=== PATIENT | male | born 1990 | race Caucasian/White ===

== ENCOUNTER 2020-02-01 13:19 | Emergency (ER) | payer OTHER, SELFPAY ==
[2020-02-01 13:23] VITALS: BP 135/68; PULSE 69; RESP 16; TEMP 36.7; O2SAT 98
--- NOTE | 2020-02-01 14:40 | ED.GENADULT ---
HPI - General Adult General Chief complaint: Dental/Oral Stated complaint: abscess tooth Time Seen by Provider: 02/01/20 13:51 Source: patient Mode of arrival: ambulatory Limitations: no limitations History of Present Illness HPI narrative: Patient presents with chief complaint of dental pain and swelling to the right upper jaw that has worsened over the past 3 days. Patient denies fever chills, nausea, vomiting, diarrhea. Patient states that he has been taking Tylenol and ibuprofen for pain. Patient states that he has not yet seen a dentist for this episode. Patient states he has diffuse cavities and tooth fractures. Patient states any pa past he was diagnosed with gingivitis. Patient reports allergy to clindamycin but denies allergies to amoxicillin. Related Data Allergies Allergy/AdvReac Type Severity Reaction Status Date / Time clindamycin Allergy Abdominal Verified 02/01/20 13:40 Pain Review of Systems Review of Systems: Narrative: CONSTITUTIONAL: Denies fever, chills, or sweats. EYES: Denies visual changes, redness, or discharge. ENT: Reports dental pain denies rhinorrhea, congestion, sore throat, or otalgia. CARDIOVASCULAR: Denies chest pain, palpitations, or edema. RESPIRATORY: Denies cough or dyspnea. GASTROINTESTINAL: Denies abdominal pain, nausea, vomiting, or diarrhea. GENITOURINARY: Denies dysuria or hematuria. SKIN: Denies rash or itching. MUSCULOSKELETAL: Denies back pain, joint pain, or myalgia. NEUROLOGIC: Denies headache, numbness, dizziness, or weakness. PSYCHIATRIC: Denies anxiety or depression. PMFSH Social History Social History Gender identity (if verbalized by the patient): Male Exam Narrative: Exam Narrative: GENERAL: Well-appearing, well-nourished, and in no acute distress. HEAD: Normocephalic, atraumatic. EYES: PERRLA and EOMI. ENT: Nares clear, no rhinorrhea or epistaxis. Mucous membranes moist. Oropharynx without tonsillar hypertrophy exudate or other lesions. Bilateral TMs pearly interiano nonbulging. Swelling and erythema to gums and right upper mouth. No abscess noted to the gumline. There is diffuse cavities and dental injury. NECK: Supple. No adenopathy or masses. CHEST: No respiratory distress EXTREMITIES: Normal range of motion. SKIN: Warm, dry, no rash. NEURO: No focal deficits. Alert and oriented x3. PSYCH: Normal mood and affect. Course Vital Signs Vital signs: Vital Signs Temperature 98.1 F 02/01/20 13:23 Pulse Rate 69 02/01/20 13:23 Respiratory Rate 16 02/01/20 13:23 Blood Pressure 135/68 02/01/20 13:23 Pulse Oximetry 98 02/01/20 13:23 Temperature 98.1 F 02/01/20 13:23 Pulse Rate 69 02/01/20 13:23 Respiratory Rate 16 02/01/20 13:23 Blood Pressure 135/68 02/01/20 13:23 Pulse Oximetry 98 02/01/20 13:23 Medical Decision Making MDM Narrative Medical decision making narrative: Discussed with patient the importance of following up with dentist for definitive treatment. Vital Signs Vital Signs: Vital Signs Temperature 98.1 F 02/01/20 13:23 Pulse Rate 69 02/01/20 13:23 Respiratory Rate 16 02/01/20 13:23 Blood Pressure 135/68 02/01/20 13:23 Pulse Oximetry 98 02/01/20 13:23 Temperature 98.1 F 02/01/20 13:23 Pulse Rate 69 02/01/20 13:23 Respiratory Rate 16 02/01/20 13:23 Blood Pressure 135/68 02/01/20 13:23 Pulse Oximetry 98 02/01/20 13:23 Discharge Plan Discharge Clinical Impression: Dental abscess Patient Disposition: Home, Self-Care Condition: Improved Instructions: Antibiotic Form, Dental Abscess (ED) Additional Instructions: Take amoxicillin as directed. Take naproxen as directed. Do not take naproxen with any other NSAIDs such as ibuprofen, Aleve, Motrin. You may take Tylenol with this medication if needed. A small amount of lidocaine viscous to a cotton ball and applied to the area of pain. Be careful not to the areas in your mouth as anything it touches it will
[2020-02-01] MEDS: KETOROLAC (*BKC) 60 MG/2 ML VIAL 30 MG IM (14:54)
== END 2020-02-01 14:55 | disposition home or self-care (01) ==
PROVIDERS: Emergency Provider Emergency Medicine
DX: K04.7 Periapical abscess without sinus (principal)
CPT/HCPCS: 96372; 99283; J1885

== ENCOUNTER 2021-07-03 13:44 | Emergency (ER) | payer OTHER, SELFPAY ==
--- NOTE | ~2021-07-03 | XR_ITS ---
EXAMINATION: XR abdomen obstructive series DATE: 07/03/2021 17:24 INDICATION: One year of recently worsening loose stools, abdominal fullness and cramping. TECHNIQUE: Frontal supine and upright views of the abdomen were obtained. COMPARISON: None. FINDINGS: Small amount of gas and small to moderate amount of stool scattered throughout the colon. No dilated gas-filled loops of bowel to suggest obstruction. No pneumatosis or free intraperitoneal gas. Lung ba ses are clear. Heart size within normal limits for AP technique. Multiple phleboliths in the pelvis. Mild thoracolumbar dextroscoliosis. IMPRESSION: 1. Normal bowel gas pattern. No free intraperitoneal gas or dilated gas-filled loops of bowel to sug gest obstruction. Reviewed, dictated and finalized at location A. IMPRESSION: 1. Normal bowel gas pattern. No free intraperitoneal gas or dilated gas-filled loops of bowel to suggest obstruction.
[2021-07-03 14:09] VITALS: BP 137/79; PULSE 74; RESP 16; TEMP 36.9; O2SAT 98
[2021-07-03 16:17] LABS: Basophils Absolute Auto 0.1 K/mm3 (0.0-0.1); Basophils Percent Auto 0.6 % (0.2-1.2); Eosinophils Absolute Auto 0.3 K/mm3 (0-0.3); Eosinophils Percent Auto 3.8 % (0-4.4); Hematocrit 43.3 % (42.0-52.0); Hemoglobin 14.9 g/dL (14.0-18.0); Immature Granulocyte Absolute 0.01 K/mm3 (0.00-0.031); Immature Granulocyte Percent A 0.1 % (0-0.5); Lymphocytes Absolute Auto 3.21 K/mm3 (0.9-3.2); Lymphocytes Percent Auto 40.5 % (18.3-44.2); Mean Corpuscular HGB Conc 34.4 g/dl (32-36); Mean Corpuscular Volume 87.1 fl (80-100); Mean Platelet Volume 9.8 fl (7.4-10.4); Monocytes Absolute Auto 0.6 K/mm3 (0.1-0.6); Monocytes Percent Auto 7.7 % (2.6-8.5); Neutrophils Absolute Auto 3.8 K/mm3 (1.3-6.7); Neutrophils Percent Auto 47.3 % (45.5-73.1); Platelet Count Result 201 k/mm3 (150-375); Red Blood Count 4.97 M/mm3 (4.6-6.20); Red Cell Distribution Width 12.7 % (11.5-14.5); White Blood Count 7.9 K/mm3 (4.5-10.0)
[2021-07-03 16:18] LABS: Add Urine Microscopic? NO; Appearance Urine Clear (Clear); Bilirubin Urine Negative (Negative); Blood Urine Negative (Negative); Color Urine Yellow (Yellow); Glucose Urine UA Negative (Negative); Ketones Urine Negative (Negative); Leukocyte Esterase Ur Negative LEU/UL (Negative); Nitrate Urine Negative (Negative); Protein Urine Negative (Negative); Specific Grav Ur 1.023 (1.001-1.035); Urobilinogen Urine Negative mg/dL (<2.0)
[2021-07-03 16:42] LABS: Alanine Aminotransferase 29 U/L (4-50); Albumin Level 4.4 g/dL (3.5-5.1); Alkaline Phosphatase 92 U/L (38-126); Anion Gap 7 mmol/L (8-16); Aspartate Amino Transferase 30 U/L (17-59); Bilirubin,Total 0.4 mg/dL (0.2-1.3); Blood Urea Nitrogen 17 mg/dL (9-20); Calcium 9.3 mg/dL (8.4-10.2); Carbon Dioxide 27 mmol/L (22-30); Chloride 102 mmol/L (98-107); Estimated CRCL calculation 110 ml/min; Estimated Glomerular Filt Rate > 60; Glucose 92 mg/dL (65-110); Lipase 56 U/L (23-300); Sodium 136 mmol/L (137-145)
--- NOTE | 2021-07-03 17:10 | ED.GENADULT ---
HPI - General Adult General Chief complaint: Abdominal Pain Stated complaint: hernia Time Seen by Provider: 07/03/21 16:06 Source: patient Mode of arrival: ambulatory Limitations: no limitations History of Present Illness HPI narrative: Patient is here for evaluation of what he perceives to be an umbilical hernia, abdominal distention and soft stools. He states that he had some bleeding from his bellybutton several months ago, now there is a growth that he thinks is a hernia. He states that he has been having 1 soft stool a day for several months he is worried about a bowel obstruction. No fever, no bleeding, stools normal color Onset (ago): day(s) Radiation: non-radiation Associated symptoms: denies other symptoms Review of Systems Review of Systems: All systems reviewed & are unremarkable except as noted in HPI and below [facility] Social History Social History (Updated 07/03/21 @ 17:29 by Candy Alejo PA-C) Smoking status: Former smoker Alcohol intake: current Substance use type: marijuana Exam Const: General: no acute distress and alert Nutritional Appearance: obese Orientation/consciousness: patient oriented x3 HENMT: Head: normal to inspection Eyes: Pupils: Equal, round and reactive pupils present Resp: Effort & Inspection: normal respiratory effort Auscultation: clear to auscultation bilaterally Cardio: Rate: regular rate Rhythm: regular rhythm GI: Inspection: other (no hernia noted.) GI Palp: Yes Firmness to palpation present (GI) (full) Auscultation: normal bowel sounds Other: There is a tuft of hair in umbilicus, unable to remove. Skin: General skin exam: normal color Neuro: General: patient oriented x3 and moves all extremities Course Course Emergency Course: X-ray results reviewed with patient. Discussed the plan of improving his diet and perhaps using a fiber supplement. What is in his bellybutton is still unknown but discussed the possibility of a gallery director looking in case it is a mole. We will give him the name of a physician so he can establish primary care. He agrees with the plan. Vital Signs Vital signs: Vital Signs Temperature 36.9 C 07/03/21 14:09 Pulse Rate 74 07/03/21 14:09 Respiratory Rate 16 07/03/21 14:09 Blood Pressure 137/79 07/03/21 14:09 Pulse Oximetry 98 07/03/21 14:09 Temperature 36.9 C 07/03/21 14:09 Pulse Rate 74 07/03/21 14:09 Respiratory Rate 16 07/03/21 14:09 Blood Pressure 137/79 07/03/21 14:09 Pulse Oximetry 98 07/03/21 14:09 Medical Decision Making Vital Signs Vital Signs: Vital Signs Temperature 36.9 C 07/03/21 14:09 Pulse Rate 74 07/03/21 14:09 Respiratory Rate 16 07/03/21 14:09 Blood Pressure 137/79 07/03/21 14:09 Pulse Oximetry 98 07/03/21 14:09 Temperature 36.9 C 07/03/21 14:09 Pulse Rate 74 07/03/21 14:09 Respiratory Rate 16 07/03/21 14:09 Blood Pressure 137/79 07/03/21 14:09 Pulse Oximetry 98 07/03/21 14:09 Lab Data Result diagrams: 07/03/21 16:09 07/03/21 16:09 Labs: Lab Results 07/03/21 07/03/21 07/03/21 Range/Units 16:08 16:09 16:09 WBC 7.9 (4.5-10.0) K/mm3 RBC 4.97 (4.6-6.20) M/mm3 Hgb 14.9 (14.0-18.0) g/dL Hct 43.3 (42.0-52.0) % MCV 87.1 (80-100) fl MCH 30.0 (26-34) pg MCHC 34.4 (32-36) g/dl RDW 12.7 (11.5-14.5) % Plt Count 201 (150-375) k/mm3 MPV 9.8 (7.4-10.4) fl Immature Gran % (Auto) 0.1 (0-0.5) % Neut % (Auto) 47.3 (45.5-73.1) % Lymph % (Auto) 40.5 (18.3-44.2) % Garrard % (Auto) 7.7 (2.6-8.5) % Eos % (Auto) 3.8 (0-4.4) % Baso % (Auto) 0.6 (0.2-1.2) % Lymph # (Auto) 3.21 H (0.9-3.2) K/mm3 Garrard # (Auto) 0.6 (0.1-0.6) K/mm3 Eos # (Auto) 0.3 (0-0.3) K/mm3 Baso # (Auto) 0.1 (0.0-0.1) K/mm3 Abs Immat Gran (auto) 0.01 (0.00-0.031) K/mm3 Absolute Neuts (auto) 3.8 (1.3-6.7) K/mm3 Absolute Nucleated RBC 0.0
[2021-07-03 19:38] VITALS: BP 136/78; PULSE 77; RESP 18; O2SAT 100
== END 2021-07-03 19:41 | disposition home or self-care (01) ==
PROVIDERS: Emergency Medicine; Emergency Provider Emergency Medicine
DX: R14.0 Abdominal distension (gaseous) (principal); Z87.891 Personal history of nicotine dependence
CPT/HCPCS: 36415; 74019; 80053; 81003; 83690; 85025; 99283

== ENCOUNTER 2022-10-02 19:22 | Emergency (ER) | payer OTHER, SELFPAY ==
[2022-10-02] VITALS (7 sets, daily range): BP systolic 135–141; BP diastolic 78–86; PULSE 82; RESP 16; TEMP 37.4; O2SAT 98–99
--- NOTE | 2022-10-02 22:54 | ED.DIZZY ---
HPI - Dizziness General Chief Complaint: Dizziness Stated Complaint: dizzy, worse with lying down Time Seen by Provider: 10/02/22 22:28 History of Present Illness HPI Narrative: 32-year-old male presented the emergency department for evaluation of vertigo. Patient states his symptoms started yesterday when he woke up. Patient denies any recent coughs colds fevers. Patient denies any ear pain or ear pressure. Patient denies any falls or injuries. Patient reports as a child he did have frequent ear infections. Symptoms are worsened when he lays flat. Patient denies any other associated numbness or weakness. Related Data Allergies Allergy/AdvReac Type Severity Reaction Status Date / Time clindamycin Allergy Abdominal Verified 10/02/22 23:15 Pain Review of Systems Review of Systems: CONSTITUTIONAL: Denies fever, chills, or sweats. EYES: Denies visual changes, redness, or discharge. ENT: Denies rhinorrhea, congestion, sore throat, or otalgia. CARDIOVASCULAR: Denies chest pain, palpitations, or edema. RESPIRATORY: Denies cough or dyspnea. GASTROINTESTINAL: Denies abdominal pain, nausea, vomiting, or diarrhea. GENITOURINARY: Denies dysuria or hematuria. SKIN: Denies rash or itching. MUSCULOSKELETAL: Denies back pain, joint pain, or myalgia. NEUROLOGIC: Vertigo PMFSH Social History Social History (System 01/28/22 @ 10:00 by Sharlene Viramontes) Smoking status: Former smoker Alcohol intake: current Substance use type: marijuana Gender identity (if verbalized by the patient): Male Exam Narrative: APPEARANCE: Well appearing, no pain, no distress, well-nourished. HEAD: normocephalic, atraumatic. EYES: PERRLA/EOMI, conjunctivae clear. NOSE: Normal no drainage EARS: Mild fluid behind right TM. Left TM is erythematous and bulging THROAT: Pharynx clear, no exudate. NECK: Supple. No adenopathy, no masses. RESPIRATORY: Airway patent, respirations nonlabored. Clear to auscultation bilaterally, no rales, rhonchi, wheezing. CARDIOVASCULAR: Regular rate and rhythm without murmurs rubs or gallops. ABDOMINAL: Soft, nontender, nondistended, normal bowel sounds MUSCULOSKELETAL: Moves all extremities. Strength/ROM intact, No edema, No calf tenderness. NEURO: Alert. Cranial nerves II through XII intact. Grossly intact. Negative Romberg. Normal strength reflexes. No drift or ataxia SKIN: Warm, dry. Normal Color Course Course Emergency Course: Patient reports his symptoms are controlled when he sits up but are worsened when laying down. Patient does have an otitis media on the left side. Patient was treated with Augmentin for the ear infection. Patient's vertigo symptoms were treated with Valium and meclizine and patient does feel improved. Patient was encouraged of close follow-up with her primary care physician. All question concerns were addressed. Vital Signs Vital signs: Vital Signs Temperature 99.3 F 10/02/22 19:52 Pulse Rate 82 10/02/22 19:52 Respiratory Rate 16 10/02/22 19:52 Blood Pressure 141/78 H 10/02/22 19:52 Pulse Oximetry 98 10/02/22 19:52 Oxygen Delivery Room Air 10/02/22 19:52 Temperature 99.3 F 10/02/22 19:52 Pulse Rate 82 10/02/22 19:52 Respiratory Rate 16 10/02/22 19:52 Blood Pressure 141/78 H 10/02/22 19:52 Pulse Oximetry 98 10/02/22 19:52 Oxygen Delivery Room Air 10/02/22 19:52 Discharge Plan Discharge Clinical Impression: Vertigo Otitis media Qualifiers: Otitis media type: unspecified Laterality: left Qualified Code(s): H66.92 - Otitis media, unspecified, left ear Patient Disposition: Home, Self-Care Condition: Stable Instructions: Antibiotic Form, Benign Paroxysmal Positional Vertigo (ED) Prescriptions: New amoxicillin-pot clavulanate 875-125 mg tablet 1 tablet PO Q12H Qty: 14 0RF meclizine 25 mg tablet 25 mg PO BID PRN (Reason: vertigo) Qty: 14 0RF No Action naproxen 500 mg tablet 500 mg PO BID PRN (Re
[2022-10-02] MEDS: AMOXICILLIN/CLAVULANATE K 875-125 MG TAB 1 TABLET PO (23:14)
[2022-10-02] MEDS: diazePAM (*CRX) 2 MG TABLET PO (23:14)
[2022-10-02] MEDS: MECLIZINE HCL 25 MG TABLET PO (23:14)
--- NOTE | 2022-10-02 23:54 | PC.NURSE ---
Patient states he is feeling better and is ready to go home. ERP notified. Patients SO here to take him home.
== END 2022-10-03 00:03 | disposition home or self-care (01) ==
PROVIDERS: Emergency Provider Emergency Medicine
DX: R42 Dizziness and giddiness (principal); H66.92 Otitis media, unspecified, left ear; Z87.891 Personal history of nicotine dependence
CPT/HCPCS: 99283; A9270

== ENCOUNTER 2023-05-24 12:37 | Emergency (ER) | payer OTHER, SELFPAY ==
[2023-05-24] VITALS (8 sets, daily range): BP systolic 125–150; BP diastolic 73–87; PULSE 55–76; RESP 14–22; TEMP 36.6; O2SAT 93–99
--- NOTE | ~2023-05-24 | XR_ITS ---
EXAMINATION: XR chest 2V DATE: 05/24/2023 13:12 INDICATION: Frontal chest pressure. Shortness of breath. TECHNIQUE: Frontal and lateral views of the chest were obtained. COMPARISON: None. FINDINGS: The chest demonstrates clear lungs without pneumonia, pleural effusion, or pneumothorax. Th e heart size is normal. IMPRESSION: 1. No acute cardiopulmonary disease. Reviewed, dictated and finalized at location A.
--- NOTE | 2023-05-24 12:54 | ECG_ITS ---
Measurements Intervals [place] Rate: 65 P: 37 VA: 156 QRS: 32 QRSD: 111 T: 37 QT: 382 QTc: 398 Interpretive Statements SINUS RHYTHM BORDERLINE R WAVE PROGRESSION, ANTERIOR LEADS MINIMAL Q WAVES- INFERIOR LEADS BASELINE ARTIFACT- I, III, AVL BORDERLINE ECG NO PREVIOUS ECG AVAILABLE FOR COMPARISON Electronically Signed On 05-24-2023 13:58:05 CDT by Rj Gonzalez D.O.
[2023-05-24 13:02] LABS: Basophils Percent Auto 0.5 % (0.2-1.2); Eosinophils Absolute Auto 0.2 K/mm3 (0-0.3); Eosinophils Percent Auto 2.1 % (0-4.4); Hematocrit 46.1 % (42.0-52.0); Hemoglobin 15.8 g/dL (14.0-18.0); Immature Granulocyte Absolute 0.03 K/mm3 (0.00-0.031); Immature Granulocyte Percent A 0.4 % (0-0.5); Lymphocytes Absolute Auto 1.39 K/mm3 (0.9-3.2); Lymphocytes Percent Auto 18.4 % (18.3-44.2); Mean Corpuscular HGB Conc 34.3 g/dl (32-36); Mean Corpuscular Hemoglobin 30.5 pg (26-34); Mean Platelet Volume 9.6 fl (7.4-10.4); Monocytes Absolute Auto 0.5 K/mm3 (0.1-0.6); Monocytes Percent Auto 6.7 % (2.6-8.5); Neutrophils Absolute Auto 5.4 K/mm3 (1.3-6.7); Neutrophils Percent Auto 71.9 % (45.5-73.1); Platelet Count Result 204 k/mm3 (150-375); Red Blood Count 5.18 M/mm3 (4.6-6.20); Red Cell Distribution Width 13.1 % (11.5-14.5); White Blood Count 7.6 K/mm3 (4.5-10.0)
[2023-05-24 13:12] LABS: INR 0.9; Prothrombin Time 12.8 Seconds (11.1-14.7)
[2023-05-24 13:13] LABS: Partial Thromboplastin Time 25.9 SECONDS (22.3-36.8)
[2023-05-24 13:14] LABS: Alanine Aminotransferase 36 U/L (6-50); Albumin Level 4.4 g/dL (3.5-5.1); Alkaline Phosphatase 98 U/L (38-126); Anion Gap 8 mmol/L (8-16); Aspartate Amino Transferase 31 U/L (17-59); Bilirubin,Total 0.6 mg/dL (0.2-1.3); Blood Urea Nitrogen 10 mg/dL (9-20); Carbon Dioxide 28 mmol/L (22-30); Chloride 101 mmol/L (98-107); Estimated CRCL calculation 130 ml/min; Estimated Glomerular Filt Rate > 60; Glucose 98 mg/dL (65-110); Lipase 32 U/L (23-300); Potassium 4.1 mmol/L (3.4-5.0); Sodium 137 mmol/L (137-145)
[2023-05-24 13:26] LABS: Troponin I < 0.012 ng/mL (0.000-0.034)
[2023-05-24] MEDS: ASPIRIN 81 MG CHEWABLE TABLET 324 MG PO (14:39)
--- NOTE | 2023-05-24 15:37 | ED.GENADULT ---
HPI - General Adult General Chief complaint: Chest Pain Stated complaint: chest tightness, palpitations Time Seen by Provider: 05/24/23 14:20 Source: patient Mode of arrival: ambulatory Limitations: no limitations History of Present Illness HPI narrative: This is a 33-year-old male with PMH of bipolar 1 who presents to the ED with chief complaint of chest pain onset yesterday evening. Patient states that has been intermittent in nature. Reports some associated nausea that is resolved. Denies vomiting. It is not associated with exertion. Patient states the pain is a pressure-like sensation in the middle of the chest. Denies any radiation of pain. Reports occasional palpitations. Reports intermittent lightheadedness. Denies LOC. Denies fevers, chills, cough, shortness of breath, abdominal pain, back pain, leg swelling. Related Data Home Medications Medication Instructions Recorded Confirmed No Home Medications 12/31/22 12/31/22 Allergies Allergy/AdvReac Type Severity Reaction Status Date / Time clindamycin Allergy Abdominal Verified 05/24/23 14:26 Pain PMFSH Past Medical History Medical History (Updated 05/24/23 @ 16:03 by Maurilio Garay PA-C) Bipolar 1 disorder Surgical History Surgical History (Updated 12/31/22 @ 14:22 by Thomas Ascencio APRN) History of tonsillectomy and adenoidectomy Family History Family History (Updated 12/31/22 @ 14:24 by Thomas Ascencio APRN) Grandparent Diabetes mellitus Hypertension Heart disease Social History Social History (Updated 12/31/22 @ 14:25 by Thomas Ascencio APRN) Smoking status: Current some day smoker Tobacco type: cigars Alcohol intake: current Alcohol use details: 2 days per week Substance use: current Substance use type: marijuana Living arrangements: with family Occupation/Education: unemployed Gender identity (if verbalized by the patient): Male Exam Narrative: GENERAL: Appears anxious. Otherwise well-appearing. HEAD: Normocephalic, atraumatic. EYES: PERRLA and EOMI. ENT: Nares clear, no rhinorrhea or epistaxis. Mucous membranes moist. Oropharynx without tonsillar hypertrophy exudate or other lesions. NECK: Supple. No adenopathy or masses. CHEST: No respiratory distress. Clear to auscultation. No wheezes rales or rhonchi. HEART: Regular rate and rhythm. No murmur heard. Normal peripheral pulses. ABDOMEN: Soft, nontender, nondistended, normal active bowel sounds. MSK: Normal range of motion. No edema. SKIN: Warm, dry, no rash. NEURO: Alert and oriented x3. No focal deficits. PSYCH: Normal mood and affect. Course Course Emergency Course: Reevaluation 1654: Patient is feeling much better and ready to go home. Vital Signs Vital signs: Vital Signs Temperature 97.9 F 05/24/23 12:52 Pulse Rate 67 05/24/23 12:52 Respiratory Rate 16 05/24/23 12:52 Blood Pressure 130/73 05/24/23 12:52 Pulse Oximetry 99 05/24/23 12:52 Oxygen Delivery Room Air 05/24/23 12:52 Temperature 97.9 F 05/24/23 12:52 Pulse Rate 62 05/24/23 16:32 Respiratory Rate 15 05/24/23 16:32 Blood Pressure 143/87 H 05/24/23 16:32 Pulse Oximetry 95 05/24/23 16:32 Oxygen Delivery Room Air 05/24/23 14:25 Medical Decision Making MDM Narrative Medical decision making narrative: This is a 33-year-old male who presents to the ED with chief complaint of chest pain onset last night. Intermittent in nature and centrally located. Vitals are normal. Lab work grossly unremarkable. Serial troponins are negative. PERC rule negative. Chest x-ray negative. His pain resolved while he was here in the ED. Symptoms consistent with atypical chest pain. He is stable for discharge home at this point. Supportive measures discussed and return precautions were given. He is understanding and agreeable with the plan for discharge and follow-up with his PCP about chest pain. Vital Signs Vital Signs: Vi
[2023-05-24 16:32] LABS: Troponin I < 0.012 ng/mL (0.000-0.034)
== END 2023-05-24 17:03 | disposition home or self-care (01) ==
PROVIDERS: Emergency Medicine; Emergency Provider Physician Assistant; PCP Internal Medicine
DX: R07.89 Other chest pain (principal); F17.290 Nicotine dependence, other tobacco product, uncomplicated; R94.31 Abnormal electrocardiogram [ECG] [EKG]
CPT/HCPCS: 36415; 71046; 80053; 83690; 84484; 85025; 85610; 85730; 93005; 99284; A9270

== ENCOUNTER 2023-05-29 22:08 | Emergency (ER) | payer OTHER, SELFPAY ==
--- NOTE | ~2023-05-29 | CT_ITS ---
EXAMINATION: CTA chest PE abdomen pel DATE: 05/30/2023 01:08 INDICATION: Chest pain. Abdominal pain. TECHNIQUE: Computed tomography angiography (CTA) of the chest was performed with 100 mL Omnipaque-350 intravenous contrast timed to evaluate the pulmonary arteries. Coronal maximum intensity projection 3D-reconstructions were created by the technologist. Computed tomography (CT) of the abdomen and pelv is was performed with intravenous contrast. Automated exposure control and iterative reconstruction t echnique were employed. The dose-length product was 2009.72 mGy-cm. COMPARISON: None. FINDINGS: CTA chest: There is minimal atelectasis bilaterally. No pleural effusion. The heart size is normal. N o pericardial effusion. There is no pulmonary embolus. There is moderate thoracic spondylosis. There is mild chronic anterior wedging of multiple vertebral bodies. CT abdomen and pelvis: There is diffuse hepatic steatosis. There is a 10 mm cyst in the liver. The ga llbladder, spleen, pancreas, adrenal glands, and kidneys are normal. There are no dilated loops of grace wel. The appendix is normal. There are no pathologically enlarged lymph nodes. There is no free intra peritoneal fluid. There is moderate lumbar spondylosis. IMPRESSION: 1. No pulmonary embolus. 2. Diffuse hepatic steatosis. Reviewed, dictated and finalized at location A.
--- NOTE | ~2023-05-29 | XR_ITS ---
EXAMINATION: XR chest 2V DATE: 05/29/2023 22:49 INDICATION: Chest tightness. Shortness of breath. TECHNIQUE: Frontal and lateral views of the chest were obtained. COMPARISON: Chest 2 views 06/20/2023, chest CT 05/30/2023 FINDINGS: The chest demonstrates clear lungs without pneumonia, pleural effusion, or pneumothorax. Th e heart size is normal. IMPRESSION: 1. No acute cardiopulmonary disease. Reviewed, dictated and finalized at location A.
--- NOTE | 2023-05-29 22:10 | ECG_ITS ---
Measurements Intervals [place] Rate: 94 P: 28 TN: 124 QRS: 43 QRSD: 94 T: 45 QT: 341 QTc: 428 Interpretive Statements SINUS RHYTHM BORDERLINE R WAVE PROGRESSION, ANTERIOR LEADS BASELINE WANDER- II, III, AVR, AVL, AVF, V2-V6 BORDERLINE ECG COMPARED TO ECG 05/24/2023 12:50:42 NO SIGNIFICANT CHANGES Electronically Signed On 05-30-2023 7:31:38 CDT by Rj Gonzalez D.O.
[2023-05-29 22:12] VITALS: BP 133/84; PULSE 92; RESP 22; TEMP 36.3; O2SAT 100
[2023-05-29 23:03] LABS: Basophils Absolute Auto 0.1 K/mm3 (0.0-0.1); Basophils Percent Auto 0.6 % (0.2-1.2); Eosinophils Absolute Auto 0.1 K/mm3 (0-0.3); Eosinophils Percent Auto 1.1 % (0-4.4); Hematocrit 47.9 % (42.0-52.0); Hemoglobin 16.8 g/dL (14.0-18.0); Immature Granulocyte Absolute 0.02 K/mm3 (0.00-0.031); Immature Granulocyte Percent A 0.2 % (0-0.5); Lymphocytes Absolute Auto 2.28 K/mm3 (0.9-3.2); Lymphocytes Percent Auto 28.3 % (18.3-44.2); Mean Corpuscular HGB Conc 35.1 g/dl (32-36); Mean Corpuscular Hemoglobin 30.5 pg (26-34); Mean Corpuscular Volume 87.1 fl (80-100); Mean Platelet Volume 10.1 fl (7.4-10.4); Monocytes Absolute Auto 0.6 K/mm3 (0.1-0.6); Monocytes Percent Auto 7.9 % (2.6-8.5); Neutrophils Percent Auto 61.9 % (45.5-73.1); Platelet Count Result 233 k/mm3 (150-375); Red Cell Distribution Width 12.7 % (11.5-14.5); White Blood Count 8.1 K/mm3 (4.5-10.0)
[2023-05-29 23:29] LABS: Alanine Aminotransferase 37 U/L (6-50); Albumin Level 5.1 g/dL (3.5-5.1); Alkaline Phosphatase 101 U/L (38-126); Anion Gap 14 mmol/L (8-16); Aspartate Amino Transferase 32 U/L (17-59); Bilirubin,Total 0.8 mg/dL (0.2-1.3); Blood Urea Nitrogen 12 mg/dL (9-20); Calcium 9.5 mg/dL (8.4-10.2); Carbon Dioxide 24 mmol/L (22-30); Chloride 98 mmol/L (98-107); Estimated CRCL calculation 120 ml/min; Estimated Glomerular Filt Rate > 60; Glucose 103 mg/dL (65-110); Lipase 29 U/L (23-300); Potassium 3.4 mmol/L (3.4-5.0); Sodium 136 mmol/L (137-145)
[2023-05-29 23:36] LABS: Partial Thromboplastin Time 26.7 SECONDS (22.3-36.8)
[2023-05-29 23:41] LABS: Troponin I < 0.012 ng/mL (0.000-0.034)
[2023-05-29 23:55] VITALS: PULSE 85; RESP 15; O2SAT 98
[2023-05-30] VITALS (26 sets, daily range): BP systolic 95–145; BP diastolic 74–100; PULSE 62–102; RESP 14–33; O2SAT 94–100
[2023-05-30] MEDS: BELLADONNA ALK/PHENOB ELIX 10 ML, MAG HYDROX/ALUMINUM HYD/SIMETH 30 ML, LIDOCAINE HCL 2... PO (00:30)
[2023-05-30 02:05] LABS: Troponin I < 0.012 ng/mL (0.000-0.034)
--- NOTE | 2023-05-30 03:06 | ED.GENADULT ---
HPI - General Adult General Chief complaint: Chest Pain Stated complaint: chest tightness Time Seen by Provider: 05/29/23 23:52 History of Present Illness HPI narrative: Patient 33 gentleman presents emergency department chief complaint of chest pain. The patient reports that for the last 6 days he has had discomfort in his chest patient reports that it is a heaviness and tightness reports he feels a little short of breath with this the patient was seen approximately 6 days ago had a negative EKG and negative troponins for 2 episodes but is continued to have constant discomfort. The patient reports he feels as though I he is going to if this continues on patient reports that he has no prior history of cardiac disease Related Data Allergies Allergy/AdvReac Type Severity Reaction Status Date / Time clindamycin Allergy Abdominal Verified 05/24/23 14:26 Pain Review of Systems Review of Systems: A 10 system review of systems was completed on the patient and is negative except for what is stated in the HPI. Nursing and ancillary documentation was reviewed. [facility] Past Medical History Medical History Bipolar 1 disorder Surgical History Surgical History History of tonsillectomy and adenoidectomy Family History Family History Grandparent Diabetes mellitus Hypertension Heart disease Social History Social History Smoking status: Current some day smoker Tobacco type: cigars Alcohol intake: current Alcohol use details: 2 days per week Substance use: current Substance use type: marijuana Living arrangements: with family Occupation/Education: unemployed Gender identity (if verbalized by the patient): Male Exam Narrative: GENERAL: Well-appearing, well-nourished, and in no acute distress. HEAD: Normocephalic, atraumatic. EYES: PERRLA and EOMI. ENT: Nares clear, no rhinorrhea or epistaxis. Mucous membranes moist. NECK: Supple. CHEST: Clear to auscultation. No respiratory distress. HEART: Regular rate and rhythm. No murmur heard. Normal peripheral pulses. ABDOMEN: Soft, nontender, nondistended, normal active bowel sounds. EXTREMITIES: Normal range of motion. No edema. SKIN: Warm, dry, no rash. NEURO: No focal deficits. Alert and oriented x3. PSYCH: Normal mood and affect. Course Vital Signs Vital signs: Vital Signs Temperature 36.3 C L 05/29/23 22:12 Pulse Rate 92 05/29/23 22:12 Respiratory Rate 22 H 05/29/23 22:12 Blood Pressure 133/84 05/29/23 22:12 Pulse Oximetry 100 05/29/23 22:12 Oxygen Delivery Room Air 05/29/23 22:12 Temperature 36.3 C L 05/29/23 22:12 Pulse Rate 79 05/30/23 01:17 Respiratory Rate 16 05/30/23 01:17 Blood Pressure 118/80 05/30/23 01:17 Pulse Oximetry 95 05/30/23 01:17 Oxygen Delivery Room Air 05/30/23 00:27 Medical Decision Making MDM Narrative Medical decision making narrative: Differential diagnosis includes ACS, bowel obstruction, gastroesophageal reflux disease, esophageal spasm take EKG showed no evidence of acute ischemic changes Chest x-ray showed no focal infiltrate Laboratory studies were within normal limits troponin was negative for 2 sets lipase was negative CTA chest showed no evidence of pulmonary embolism CT scan of the abdomen pelvis showed no acute intra-abdominal pathology, Patient received a GI cocktail and essentially resolved his symptoms the patient be discharged home on Protonix and Carafate Vital Signs Vital Signs: Vital Signs Temperature 36.3 C L 05/29/23 22:12 Pulse Rate 92 05/29/23 22:12 Respiratory Rate 22 H 05/29/23 22:12 Blood Pressure 133/84 05/29/23 22:12 Pulse Oximetry 100 05/29/23 22:12 Oxygen [employer]
== END 2023-05-30 03:32 | disposition home or self-care (01) ==
PROVIDERS: Emergency Provider Emergency Medicine; PCP Nurse Practitioner
DX: K29.70 Gastritis, unspecified, without bleeding (principal); R07.9 Chest pain, unspecified; F17.290 Nicotine dependence, other tobacco product, uncomplicated
CPT/HCPCS: 36415; 71046; 71275; 74177; 80053; 83690; 84484; 85025; 85610; 85730; 93005; 99284; A9270; Q9967

== ENCOUNTER 2023-06-15 01:28 | Day surgery (SDC) | payer OTHER, SELFPAY ==
[2023-06-04 14:30] VITALS: BMI 37.3
[2023-06-15 11:20] VITALS: BP 128/73; PULSE 65; RESP 20; O2SAT 99; BMI 37.6
--- NOTE | 2023-06-15 11:26 | WPDHPUPDATE1 ---
History and Physical Update Update Date/Time: 06/15/23 11:26 History and Physical has been reviewed, including an updated exam of the patient. There are NO changes in the patient's condition. Risks, benefits, and alternatives have been discussed and questions answered. Patient agrees to proceed with procedure.
[2023-06-15] MEDS: LACTATED RINGERS 1,000 ML 150 ML IV CONT (11:44)
--- NOTE | 2023-06-15 12:02 | WPDANESEPPF ---
Anes - Initial Pre Proc Eval Procedure: Operation Date: 06/15/23 12:30 Proposed Procedures p Esophagogastroduodenoscopy & Colonoscopy - Gibson Casey MD Date/Time: 06/15/23 12:02 Surgeon: Gibson Casey MD Pre Op Diagnosis: IBS-D,abdom.distension,other chest pain Patient Data Age: 33 Gender: M Height: 1.7 m Weight: 109 kg Last Vital Signs Pulse 65 06/15/23 11:20 Resp 20 06/15/23 11:20 BP 128/73 06/15/23 11:20 Pulse Ox 99 06/15/23 11:20 O2 Del Method Room Air 06/15/23 11:20 Allergies Allergy/AdvReac Type Severity Reaction Status Date / Time clindamycin Allergy Abdominal Verified 06/15/23 11:21 Pain Home Medications Medication Instructions Recorded Confirmed Type sucralfate 1 gram tablet (Carafate) 1 g PO QID 10 days #40 tabs 05/30/23 06/15/23 Rx dicyclomine 20 mg tablet 20 mg PO .every 6 hours PRN 06/01/23 06/15/23 Rx abdominal pain #120 tabs pantoprazole 40 mg tablet,delayed 40 mg PO HS 4 weeks #28 tabs 06/01/23 06/15/23 Rx release (Protonix) rifaximin 550 mg tablet (Xifaxan) 550 mg PO TID 14 days #42 tabs 06/01/23 06/15/23 Rx Patient hx anesthesia problems: none Family hx anesthesia problems: none Results Review: All pre-operative results and documents have been reviewed as part of the pre-operative evaluation. [facility] Past Medical History Medical History (Updated 06/01/23 @ 13:29 by Cheryle Leyva, PIERCE) Bipolar 1 disorder Bloating Bright red blood per rectum Hepatic steatosis Irritable bowel syndrome with diarrhea Obesity Tobacco abuse Surgical History Surgical History History of tonsillectomy and adenoidectomy Family History Family History Grandparent Diabetes mellitus Hypertension Heart disease Social History Social History Years smoked: 20 Smoking status: Former smoker Tobacco type: cigarettes and e-cigarettes/vaping Alcohol intake: current Alcohol use details: Every other day until black out Substance use: current Substance use type: marijuana Living arrangements: with family Occupation/Education: unemployed Gender identity (if verbalized by the patient): Male Spiritual care concerns: No Anes - Eval Final PreProcedure Day of Procedure 06/15/23 12:02 Patient weight: obese Heart: regular rate and rhythm Lungs: clear to auscultation Airway: Mallampati scale class II Neurological: alert and oriented Last oral intake: >/= 8 hours ASA classification: II Emergent: no Anesthetic plan: proceed Results Review: All pre-operative results and documents have been reviewed as part of the pre-operative evaluation. Informed Consent: The patient's anesthetic plan and its attendant risks and benefits were discussed with the patient/family/POA. Questions were solicited and answers provided to the satisfaction of the patient/family/POA.
--- NOTE | 2023-06-15 12:37 | SUR.OPER ---
EGD START: 1225; END: 1230. COLONOSCOPY START: 1238; END: 1244.
[2023-06-15 12:59] VITALS: BP 107/60; PULSE 87; RESP 20; O2SAT 98
[2023-06-15 13:09] VITALS: BP 117/83; PULSE 79; RESP 17; O2SAT 98
[2023-06-15 13:19] VITALS: BP 118/76; PULSE 73; RESP 20; O2SAT 98
== END 2023-06-15 13:35 | disposition home or self-care (01) ==
PROVIDERS: PCP Nurse Practitioner; Visit Provider Internal Medicine Gastroenterology
PROC: 0DJ08ZZ Inspection of Upper Intestinal Tract, Via Natural or Artificial Opening Endoscopic (ICD-10-PCS; CPT 43235; principal; 2023-06-15 12:30)
DX: R19.4 Change in bowel habit (principal); K64.8 Other hemorrhoids; K22.2 Esophageal obstruction; K58.0 Irritable bowel syndrome with diarrhea; K76.0 Fatty (change of) liver, not elsewhere classified; E66.9 Obesity, unspecified; Z68.37 Body mass index [BMI] 37.0-37.9, adult; Z87.891 Personal history of nicotine dependence; F12.90 Cannabis use, unspecified, uncomplicated
CPT/HCPCS: 45378; 43450; 43235; 87081; J2001; J2704; J7120

== ENCOUNTER 2023-07-27 13:55 | Outpatient (CLI) | payer OTHER, SELFPAY ==
[2023-07-27 14:45] LABS: Hematocrit 44.6 % (42.0-52.0); Hemoglobin 15.2 g/dL (14.0-18.0); Mean Corpuscular HGB Conc 34.1 g/dl (32-36); Mean Corpuscular Hemoglobin 30.4 pg (26-34); Mean Corpuscular Volume 89.2 fl (80-100); Mean Platelet Volume 10.3 fl (7.4-10.4); Platelet Count Result 201 k/mm3 (150-375); Red Cell Distribution Width 12.9 % (11.5-14.5); White Blood Count 6.7 K/mm3 (4.5-10.0)
[2023-07-27 15:10] LABS: Alanine Aminotransferase 21 U/L (6-50); Albumin Level 4.3 g/dL (3.5-5.1); Alkaline Phosphatase 84 U/L (38-126); Anion Gap 9 mmol/L (8-16); Aspartate Amino Transferase 23 U/L (17-59); Bilirubin,Total 0.4 mg/dL (0.2-1.3); Blood Urea Nitrogen 12 mg/dL (9-20); CRP 0.8 mg/dL (<1.0); Calcium 8.7 mg/dL (8.4-10.2); Carbon Dioxide 22 mmol/L (22-30); Chloride 107 mmol/L (98-107); Estimated Glomerular Filt Rate > 60; Glucose 94 mg/dL (65-110); Potassium 3.9 mmol/L (3.4-5.0); Sodium 138 mmol/L (137-145)
[2023-07-27 15:37] LABS: Thyroid Stimulating Hormone Reflex 0.551 uIU/mL (0.465-4.68)
[2023-07-30 11:04] LABS: Immunoglobulin A 193 mg/dL (47-310); TTG IGA AB <1.0 U/mL (<15.0)
== END 2023-07-27 13:56 | disposition home or self-care (01) ==
LOC: ANHLAB 13:56
PROVIDERS: PCP Nurse Practitioner; Visit Provider Nurse Practitioner
DX: K21.9 Gastro-esophageal reflux disease without esophagitis (principal); K76.0 Fatty (change of) liver, not elsewhere classified; R14.0 Abdominal distension (gaseous); K58.0 Irritable bowel syndrome with diarrhea
CPT/HCPCS: 36415; 80053; 82784; 84443; 85027; 86003; 86140; 86364

== ENCOUNTER 2024-04-30 21:14 | Emergency (ER) | payer OTHER, SELFPAY ==
[2024-04-30 21:16] VITALS: BP 138/87; PULSE 69; RESP 16; TEMP 36.9; O2SAT 100
[2024-04-30] MEDS: AMOXICILLIN/CLAVULANATE K 875-125 MG TAB 1 TABLET PO (22:31)
[2024-04-30] MEDS: HYDROcodone/acetaminophen (*CRX) 5-325 MG TABLET 1 TAB PO (22:31)
[2024-04-30] MEDS: IBUPROFEN 600 MG TABLET PO (22:32)
--- NOTE | 2024-04-30 22:39 | ED.DENTAL ---
HPI - Dental/Oral General Chief complaint: Dental/Oral Stated complaint: dental infection Time Seen by Provider: 04/30/24 21:34 Source: patient Mode of arrival: ambulatory Limitations: no limitations History of Present Illness HPI Narrative: Patient is a 34 y/o male who presents to the ED with c/o R sided dental pain. Patient reports he broke his right upper canine, tooth #6 a few weeks ago. He has had intermittent pain since then, but complains of more significant pain since this morning. He also reports chronic issues with his right lower molars, tooth 31 and 32. States he has been having pain in this region since this morning as well. Has not taken anything for pain. Denies vomiting, difficulty breathing or swallowing, fevers. Patient does not currently have a dentist. Related Data Allergies Allergy/AdvReac Type Severity Reaction Status Date / Time clindamycin Allergy Abdominal Verified 01/11/24 13:31 Pain Review of Systems Review of Systems: CONSTITUTIONAL: Denies fever, chills, or sweats. ENT: See HPI. RESPIRATORY: Denies dyspnea. GASTROINTESTINAL: Denies abdominal pain, nausea, vomiting. All systems reviewed & are unremarkable except as noted in HPI and below PMFSH Past Medical History Medical History Bipolar 1 disorder Bloating Bright red blood per rectum Gastroesophageal reflux disease Hepatic steatosis Internal hemorrhoid Irritable bowel syndrome with diarrhea NAFLD (nonalcoholic fatty liver disease) Obesity Schatzki's ring Tobacco abuse Surgical History Surgical History History of tonsillectomy and adenoidectomy Family History Family History Grandparent Diabetes mellitus Hypertension Heart disease Social History Social History Years smoked: 20 Smoking status: Former smoker Tobacco type: cigarettes and e-cigarettes/vaping Alcohol intake: current Alcohol use details: Every other day until black out Substance use: current Substance use type: marijuana Living arrangements: with family Occupation/Education: unemployed Gender identity (if verbalized by the patient): Male Spiritual care concerns: No Exam Narrative: GENERAL: Well appearing, obese with BMI of 33.1, non-toxic, in no acute distress. HEAD: Normocephalic, atraumatic. ENT: Diffuse dental decay case. Scattered dental caries. Several teeth eroded down to gumline. Tooth 6 eroded down to gumline. Tenderness along out along gumline. Tenderness to palpation along right lower posterior gumline along the posterior molars. No focal fluctuance or abscess. No drainage. No bleeding. No trismus or stridor. RESPIRATORY: Airway patent, respirations nonlabored. CARDIOVASCULAR: Regular rate and rhythm MUSCULOSKELETAL: Moves all extremities. No gross deformities. SKIN: Warm, dry, normal color. NEURO: A&O X3. Speech clear. PSYCHIATRIC: Appropriate mood and affect. Normal interaction. Course Vital Signs Vital signs: Vital Signs Temperature 98.5 F 04/30/24 21:16 Pulse Rate 69 04/30/24 21:16 Respiratory Rate 16 04/30/24 21:16 Blood Pressure 138/87 04/30/24 21:16 Pulse Oximetry 100 04/30/24 21:16 Oxygen Delivery Room Air 04/30/24 21:16 Temperature 98.5 F 04/30/24 21:16 Pulse Rate 69 04/30/24 21:16 Respiratory Rate 16 04/30/24 21:16 Blood Pressure 138/87 04/30/24 21:16 Pulse Oximetry 100 04/30/24 21:16 Oxygen Delivery Room Air 04/30/24 21:16 MDM - Dental/Oral MDM Narrative Medical decision making narrative: Patient's pain is consistent with dental caries. There are no focal signs of space-occupying abscess. The patient is controlling secretions well without signs of airway compromise. Patient is felt reasonable f
== END 2024-04-30 22:51 | disposition home or self-care (01) ==
PROVIDERS: Emergency Provider Physician Assistant; PCP Nurse Practitioner
DX: K02.9 Dental caries, unspecified (principal); S02.5XXA Fracture of tooth (traumatic), initial encounter for closed fracture; K08.89 Other specified disorders of teeth and supporting structures; F31.9 Bipolar disorder, unspecified; K21.9 Gastro-esophageal reflux disease without esophagitis; X58.XXXA Exposure to other specified factors, initial encounter
CPT/HCPCS: 99283; A9270

== ENCOUNTER 2024-08-07 15:19 | Outpatient (CLI) | payer OTHER, SELFPAY ==
[2024-08-07 15:47] LABS: Hematocrit 43.5 % (42.0-52.0); Hemoglobin 14.7 g/dL (14.0-18.0); Mean Corpuscular HGB Conc 33.8 g/dl (32-36); Mean Corpuscular Hemoglobin 29.5 pg (26-34); Mean Corpuscular Volume 87.3 fl (80-100); Mean Platelet Volume 9.7 fl (7.4-10.4); Platelet Count Result 205 k/mm3 (150-375); Red Blood Count 4.98 M/mm3 (4.6-6.20); White Blood Count 6.9 K/mm3 (4.5-10.0)
[2024-08-07 15:59] LABS: INR 0.9; Prothrombin Time 12.9 Seconds (11.1-14.7)
[2024-08-07 16:01] LABS: Alanine Aminotransferase 15 U/L (6-50); Albumin Level 4.2 g/dL (3.5-5.1); Alkaline Phosphatase 71 U/L (38-126); Anion Gap 5 mmol/L (4-12); Aspartate Amino Transferase 21 U/L (17-59); Bilirubin,Total 0.3 mg/dL (0.2-1.3); Blood Urea Nitrogen 10 mg/dL (9-20); Calcium 9.1 mg/dL (8.4-10.2); Carbon Dioxide 32 mmol/L (22-30); Chloride 102 mmol/L (98-107); Estimated Glomerular Filt Rate > 60; Glucose 105 mg/dL (65-110); Potassium 4.9 mmol/L (3.4-5.0); Sodium 139 mmol/L (137-145)
[2024-08-07 18:06] LABS: Thyroid Stimulating Hormone Reflex 0.249 uIU/mL (0.465-4.68)
[2024-08-07 20:03] LABS: Free T4 Free Thyroxine Reflex 0.76 ng/dL (0.78-2.19)
[2024-08-16 17:04] LABS: ALT 11 U/L (9-46); Alpha-2-Macroglobulin 108 mg/dL (106-279); Apolipoprotein A1 148 mg/dL (94-176); Fibrosis Score 0.02; Fibrosis Stage F0; GGT 14 U/L (3-90); Haptoglobin 148 mg/dL (43-212); Necroinflammat Act Grade A0; Reference ID 5120264; Total Bilirubin 0.3 mg/dL (0.2-1.2)
== END 2024-08-07 15:20 | disposition home or self-care (01) ==
LOC: ANHLAB 15:20
PROVIDERS: PCP Nurse Practitioner; Visit Provider Nurse Practitioner
DX: K76.0 Fatty (change of) liver, not elsewhere classified (principal); K21.9 Gastro-esophageal reflux disease without esophagitis; K22.2 Esophageal obstruction; R14.0 Abdominal distension (gaseous); R63.4 Abnormal weight loss
CPT/HCPCS: 36415; 80053; 81596; 84439; 84443; 85027; 85610

== ENCOUNTER 2024-08-14 07:58 | Outpatient (CLI) | payer OTHER, SELFPAY ==
--- NOTE | ~2024-08-14 | CT_ITS ---
CT of the Abdomen and Pelvis: Indication: Abdominal pain Technique: 2.5 mm axial scans were obtained through the abdomen and pelvis following intravenous adm inistration of 100 cc of Omnipaque 350. Dose reduction technique was used on this scan by utilizing a utomated exposure control and iterative reconstruction technique. The dose-length product (DLP) was 5 99.90 mGy-cm. COMPARISON: 05/30/2023 Findings: Scans through the lung bases are unremarkable. The liver, spleen, pancreas, gallbladder, adrenals and kidneys are within normal limits. No evidence of aortic aneurysm. No lymphadenopathy. No bowel obstruction or bowel wall thickening. There is no evidence to suggest acute appendicitis. Images through the pelvis were performed. Probable diffuse urinary bladder wall thickening. No pelvic mass seen. No ascites. Impression: Probable cystitis. Correlate clinically and with urinalysis. Reviewed, dictated and finalized at [facility]. Impression: Probable cystitis. Correlate clinically and with urinalysis.
== END 2024-08-14 07:59 | disposition home or self-care (01) ==
LOC: ANHIMG 08:00
PROVIDERS: PCP Nurse Practitioner; Visit Provider Nurse Practitioner
DX: R10.32 Left lower quadrant pain (principal); K58.0 Irritable bowel syndrome with diarrhea
CPT/HCPCS: 74177; Q9967

== ENCOUNTER 2024-09-20 11:35 | Outpatient (CLI) | payer OTHER, SELFPAY ==
[2024-09-20 12:11] LABS: Add Urine Microscopic? NO; Appearance Urine Clear (Clear); Bilirubin Urine Negative (Negative); Blood Urine Negative (Negative); Color Urine Yellow (Yellow); Glucose Urine UA Negative (Negative); Ketones Urine 1+ mg/dL (Negative); Leukocyte Esterase Ur Negative LEU/UL (Negative); Nitrate Urine Negative (Negative); Protein Urine Negative (Negative); Urobilinogen Urine 0.2 mg/dL (<2.0)
[2024-09-20 12:51] LABS: Thyroid Stimulating Hormone 0.959 uIU/mL (0.465-4.680)
[2024-09-20 13:33] LABS: Free T4 Free Thyroxine 0.87 ng/mL (0.78-2.19)
== END 2024-09-20 11:36 | disposition home or self-care (01) ==
LOC: ANHLAB 11:36
PROVIDERS: PCP Nurse Practitioner; Visit Provider Nurse Practitioner
DX: R30.0 Dysuria (principal); R94.6 Abnormal results of thyroid function studies
CPT/HCPCS: 36415; 81003; 84439; 84443

== ENCOUNTER 2025-06-19 17:30 | Emergency (ER) | payer OTHER, SELFPAY ==
--- NOTE | ~2025-06-19 | XR_ITS ---
EXAM: XR finger 2nd RT min 2V DATE: 06/19/2025 18:13 HISTORY: proximal finger swelling . COMPARISON: None available. FINDINGS: Normal mineralization. No fracture or dislocation. No lytic or blastic lesion. Joint space s are maintained. No erosion or periosteal change. No radiopaque foreign body. No subcutaneous gas. P roximal soft tissue swelling, with a 1.1 cm rounded opacity along the anterolateral aspect. IMPRESSION: No acute osseous finding in the right second digit. 1.1 cm soft tissue density mass along the anterolateral aspect of the proximal second digit with adjacent soft tissue swelling. May repres ent cyst, abscess, or other soft tissue lesion. Correlate for signs of infection. Reviewed, dictated and finalized at [facility]. IMPRESSION: No acute osseous finding in the right second digit. 1.1 cm soft tis ca density mass along the anterolateral aspect of the proximal second digit wi th adjacent soft tissue swelling. May represent cyst, abscess, or other soft ti ssue lesion. Correlate for signs of infection.
--- OUTSIDE RECORDS SUMMARY | 2025-06-19 17:32 | XMS_ITS | Clinical Summary ---
Author Organization [facility] Address [address] [place] [address] Phone Care Team Providers Care Seamer Name Role Phone Provider, None Primary Care Provider Unavailabl e Allergies No known active allergies Medications LORazepam (ATIVAN) 0.5 MG Tablet Take 1 Tab by mouth every 6 hours as needed for Anxiety. 20 Tab 0 06/29/2016 Active Social History Tobacco Use Types Packs/Day Years Used Date Smoking Tobacco: Every Day Cigarettes Alcohol Use Standard Drinks/Week Comments Yes 0 (1 standard drink = 0.6 oz pur e alcohol) occasionally Sex and Gender Information Value Date Recorded Sex Assigned at Not on file Legal Sex Male 10:28 AM CDT Gender Identity Not on file Sexual Orientation Not on file Last Filed Vital Signs Vital Sign Reading Time Taken Comments Blood Pressure 111/58 06/29/2016 10:45 AM CDT Pulse 111 06/29/2016 10:34 AM CDT Temperature 36.6 C (97.8 F) 06/29/2016 10:34 AM CDT Respiratory Rate 20 06/29/2016 10:34 AM CDT Oxygen Saturation 95% 06/29/2016 10:34 AM CDT Inhaled Oxygen Concentration - - Weight 99.8 kg (220 lb) 06/29/2016 10:34 AM CDT Height 170.2 cm (5' 7) 06/29/2016 10:34 AM CDT Body Mass Index 34.46 06/29/2016 10:34 AM CDT Plan of Treatment Not on file Insurance MEDICAID [facility] PL[facility] Care Teams Seamer Relationship Specialty Start Date End Date Provider, None [place] PCP - General 06/29/16
--- OUTSIDE RECORDS SUMMARY | 2025-06-19 17:32 | XMS_ITS | Clinical Summary ---
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 Gender Identity Not on file Sexual Orientation Not on file Plan of Treatment Health Maintenance Due Date Last Done Comments Annual Physical 1992 Hepatitis C 2007 DTaP, Tdap and Td Vaccines ( 1 - Tdap) 2008 Hepatitis B Vaccines (1 of 3 - 19+ 3-dose series) 2008 HPV Vaccines (1 - 3-dose SCD M series) 2016 COVID-19 Vaccine (2023-2 5 season) 2024 Meningococcal B Vaccine Aged Out No l onger eligible based on patient's age to complete this topic Meningococcal Vaccine Aged Out No manisha moustapha eligible based on patient's age to complete this topic Pneumococcal Vaccine: Pediat rics (0 to 5 Years) and At-Risk Patients (6 to 49 Years) Aged Out No longer eligible b ased on patient's age to complete this topic RSV Immunizations Under 20 Months Aged Out No longer eligible based on patient's age to complete this topic
[2025-06-19 17:40] VITALS: BP 110/71; PULSE 76; RESP 18; TEMP 36.4; O2SAT 99
--- NOTE | 2025-06-19 18:05 | ED.EXTPRO ---
HPI - Extremity Problem General Chief complaint: Extremity Problem,Nontraumatic Stated complaint: finger swelling Time Seen by Provider: 06/19/25 18:48 Focused HPI: 35-year-old male presents emergency department for atraumatic swelling to the right 2nd digit. Patient states about a year and half ago he cut his right 1st digit with a pocket knife in the area that he now is having swelling in the same location. He has not had any issues since until he developed swelling to his right 2nd digit today. He denies recent injury or trauma. States the area is tender and painful. Denies drainage or fevers. States he never had imaging of his finger to evaluate for retained foreign body. GENERAL: Well-appearing, well-nourished, and in no acute distress. HEAD: Normocephalic, atraumatic. CHEST: Clear to auscultation. ?No respiratory distress. EXT: Right second finger with focal area of edema to the palmar aspect of the proximal phaynx. Full ROM. Mild overlying erythema. Cap refill <2. HEART: Regular rate and rhythm.? NEURO: ?Alert and oriented x3. Patient screened in triage and initial orders placed.? ?Additional care and disposition to be based upon?diagnostic testing and treatment. History of Present Illness HPI Narrative: Agree with the above HPI. Related Data Home Medications ?Medication ?Instructions ?Recorded ?Confirmed ?Last Taken ?Type psyllium husk 0.52 gram capsule 0.52 g PO BID 10/05/24 10/05/24 Unknown History (Fiber (psyllium husk)) simethicone 125 mg capsule (Gas-X 125 mg PO DAILY PRN 10/05/24 10/05/24 Unknown History Extra Strength) Allergies Allergy/AdvReac Type Severity Reaction Status Date / Time clindamycin Allergy Abdominal Verified 06/19/25 17:42 Pain Review of Systems Review of Systems: All systems reviewed & are unremarkable except as noted in HPI and below PMFSH Past Medical History Medical History NAFLD (nonalcoholic fatty liver disease) Internal hemorrhoid Schatzki's ring Gastroesophageal reflux disease Tobacco abuse Hepatic steatosis Obesity Bloating Bright red blood per rectum Irritable bowel syndrome with diarrhea Bipolar 1 disorder Surgical History Surgical History History of tonsillectomy and adenoidectomy Family History Family History Grandparent Diabetes mellitus Hypertension Heart disease Social History Social History Years smoked: 20 Smoking status: Former smoker Tobacco type: cigarettes and e-cigarettes/vaping Alcohol intake: current Alcohol use details: Every other day until black out Substance use: current Substance use type: marijuana Living arrangements: with family Occupation/Education: unemployed Gender identity (if verbalized by the patient): Male Spiritual care concerns: No Exam Narrative: GENERAL: Well-appearing, well-nourished, and in no acute distress. HEAD: Normocephalic, atraumatic. CHEST: Clear to auscultation. ?No respiratory distress. EXT: Right second finger with focal area of edema to the palmar aspect of the proximal pharynx. Area is fluctuant with mild overlying erythema. Full ROM. Cap refill <2. Negative Kanavel signs HEART: Regular rate and rhythm.? NEURO: ?Alert and oriented x3. Course Vital Signs Vital signs: Vital Signs Temperature 97.6 F 06/19/25 17:40 Pulse Rate 76 06/19/25 17:40 Respiratory Rate 18 06/19/25 17:40 Blood Pressure 110/71 06/19/25 17:40 Pulse Oximetry 99 06/19/25 17:40 Oxygen Delivery Room Air 06/19/25 17:40 Temperature 97.6 F 06/19/25 17:40 Pulse Rate 76 06/19/25 17:40 Respiratory Rate 18 06/19/25 17:40 Blood Pressure 110/71 06/19/25 17:40 Pulse Oximetry 99 06/19/25 17:40 Oxygen Delivery Room Air 06/19/25 17:40 Procedures Abscess I/D hand: Date of Incision: 06/19/25 Time of Incision: 19:09 Side (if applicable): right Local Anesthetic: lidocaine 1% Amount of anesthesia used (mL): 1 Technique: incised with #11 blade Amount of fluid expressed (mL): 1 Packing used?: none I&D Results: Blood and Other (sebaceous fluid) MDM - Extremity (Nontraumatic) MDM Narrative Medical decision making narrative: 35-year-old male presents emergency department for swelling to his right 2nd digit for 1 day. Triage vitals are stable. Exam is notable for a focal area of fluctuance to the palmar aspect of the right 2nd digit on the proximal phalanx. Mild overlying erythema. No warmth or drainage. Negative Kanavel signs. X-ray of the finger shows IMPRESSION: No acute osseous finding in the right second digit. 1.1 cm soft tissue density mass along the anterolateral aspect of the proximal second digit with adjacent soft tissue swelling. May represent cyst, abscess, or other soft tissue lesion. Correlate for signs of infection. No radiopaque foreign body. Patient updated on results. Patient does inform me that he has had a focal area of swelling to the fevers since he cut it 1 and half years ago which she presumed was scar tissue. Shared decision making regarding I and D, patient is amenable to this. Local anesthetic and I&D performed with drainage of sebaceous fluid. No complications. Suspect patient had posttraumatic sebaceous cyst formed and likely acutely became infected. Will start him on antibiotics and have a follow-up closely with his PCP. Discussed strict ED return precautions. He is agreeable with the plan verbalized understanding. Discharged in stable condition. Discharge Plan Discharge Clinical Impression: Cyst of finger Patient Disposition: Home Condition: Stable Instructions: Antibiotic Form, Incision and Drainage (ED) Additional Instructions: Please take the antibiotics as directed. Take Tylenol ibuprofen as needed for pain. Keep the finger clean and dry. Follow up with her primary care provider. Return to the emergency department if you develop surrounding redness, fever, worsening swelling, or other concerning symptoms. Patient Language: Korean Prescriptions: New sulfamethoxazole-trimethoprim 800-160 mg tablet 1 tablet PO Q12H Qty: 14 0RF No Action esomeprazole magnesium [Nexium] 40 mg capsule,delayed release(DR/EC) 40 mg PO DAILY Qty: 90 3RF amitriptyline 25 mg tablet 25 mg PO QHS Qty: 90 3RF psyllium husk [Fiber (psyllium husk)] 0.52 gram capsule 0.52 g PO BID simethicone [Gas-X Extra Strength] 125 mg capsule 125 mg PO DAILY PRN oxybutynin chloride 5 mg tablet 5 mg PO BID PRN (Reason: bladder spasms) Qty: 60 1RF Follow-up/Referrals: Thomas Ascencio, PIERCE [Primary Care Provider] -
--- OUTSIDE RECORDS SUMMARY | 2025-06-19 19:09 | XMS_ITS | Clinical Summary ---
Author Organization [facility] Address [address] [place] [address] Phone Care Team Providers Care Healthcare Technician Name Role Phone Provider, None Primary Care [...] of Treatment Not on file Insurance MEDICAID [facility] PLAN Care Teams Healthcare Technician Relationship Specialty Start Date End Date Provider, None [place] PCP - General 06/29/16
--- OUTSIDE RECORDS SUMMARY | 2025-06-19 19:09 | XMS_ITS | Clinical Summary ---
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
[2025-06-19] MEDS: SULFAMETHOXAZOLE/TRIMETHOPRIM 800/160 MG DS TABLET 1 TAB PO (19:11)
== END 2025-06-19 19:15 | disposition home or self-care (01) ==
PROVIDERS: Emergency Provider Physician Assistant; PCP Nurse Practitioner
DX: L72.9 Follicular cyst of the skin and subcutaneous tissue, unspecified (principal); K21.9 Gastro-esophageal reflux disease without esophagitis; K58.0 Irritable bowel syndrome with diarrhea; F31.9 Bipolar disorder, unspecified; Z87.891 Personal history of nicotine dependence; Z79.899 Other long term (current) drug therapy
CPT/HCPCS: 10060; 10080; 26010; 73140; 99283; A9270